=== PATIENT | female | born 1955 | race Caucasian/White ===

== ENCOUNTER 2019-08-15 08:17 | Day surgery (SDC) | payer OTHER ==
[~2019-08-15] VITALS: Ht 160 cm; Wt 62.5 kg
[~2019-08-15 08:17] MED LIST: BRINTELLIX; BUPIVACAINE-EPI 0.5%-1:200000 MPF 30 ML VIAL. INJ ONE; DEXL60CA2 PO; IV RINGERS,LACTATED 1000ML 1,000 ML IV SCH; ONDANSETRON PF 4 MG/2 ML VIAL. IV PRN; PROCHLORPERAZINE 10 MG/2 ML VIAL. IV PRN; fentaNYL PF VIAL 100 MCG/2 ML VIAL IV PRN
[2019-08-15] MEDS ORDERED: B CO1TAB10 PO (08:53)
[2019-08-15] MEDS ORDERED: LANS30CA PO (08:54)
[2019-08-15] MEDS ORDERED: BUPR100T8 PO (08:54)
[2019-08-15] MEDS ORDERED: ceFAZolin 2GM PREMIX 2 GM/50 ML BAG IV ONE (10:00)
[2019-08-15] MEDS ORDERED: ONDANSETRON PF 4 MG/2 ML VIAL. ONE (10:11)
[2019-08-15] MEDS ORDERED: PROPOFOL 20 ML IV ONE (10:11)
[2019-08-15] MEDS ORDERED: fentaNYL PF VIAL 100 MCG/2 ML VIAL ONE (10:11)
[2019-08-15] MEDS ORDERED: LIDOCAINE 2% PF 5 ML VIAL. ONE (10:11)
[2019-08-15] MEDS ORDERED: DEXAMETHASONE SOD PHOS 4 MG/ML VIAL ONE (10:11)
[2019-08-15] MEDS ORDERED: SEVOFLURANE 61 TO 120 MINUTES. IH ONE (11:00)
[2019-08-15] MEDS ORDERED: HYDROcodone/APAP 5/325MG 1 TAB TABLET PO ONE ×2 (11:30)
[2019-08-15] MEDS ORDERED: PROCHLORPERAZINE 10 MG/2 ML VIAL. ONE (11:49)
--- NOTE | 2019-08-15 11:58 | PDOC4 ---
Operative Note Operative Note Operative Note: Preoperative Diagnosis: Umbilical hernia Postoperative Diagnosis: Same Procedure: Umbilical hernia repair with mesh Surgeon: Maikel Teletype Technician: Aaron Watson Anesthesia: Gen EBL: 10 ml Specimen: None Drains: None Complications: None Indication: The patient is a 64 year old female who was referred with an umbilical hernia. She was offered surgical repair. The risks of surgery were discussed which include bleeding, infection, recurrence, pain, anesthetic risk, potential need for additional surgery or procedure. She understands and would like to proceed. Description: The patient was taken to the OR and placed supine on the operating table. General anesthesia was performed. The abdomen was prepped with chloroprep and draped in a standard surgical fashion. A small infraumbilical i ncision was made in the skin with a scalpel. Dissection was carried down to the fascia. The umbilical tissue was elevated off the fascia exposing the hernia defect. A preperitoneal plane was developed with blunt dissection. A small Ventralex ST mesh was placed in the preperitoneal plane. The mesh was secured into position with 0-Prolene placed in a horizontal mattress fashion and the 12, 3, 6, and 9:00 positions. The fascia was closed over the mesh with 0-Prolene. The umbilicus was secured back to the fascia with 0-Vicryl. The subcutaneous tissue was approximated with 3-0 Vicryl. The skin was closed with 4-0 Monocryl. The incision was infiltrated with 0.5% Marcaine with epi. Steristrips and a dressing were applied. The patient tolerated the procedure well and was sent to the PACU in stable condition. JAMIA OLEA MD Aug 15, 2019 11:58
--- NOTE | 2019-08-15 11:59 | DISCH ---
DISCHARGE INSTRUCTIONS Condition on Discharge Condition on Discharge: Stable Activity After Discharge Activity Instructions for Disc: Other, see below (no lifting over 20 lbs X 4 weeks) Diet after Discharge Diet after Discharge: Regular Wound Incision Care Wound/Incision Care: Other, see below (Keep dressing clean and dry X 72 hours, may then remove and shower) Follow-Up Follow up with: Dr Olea in 2 weeks in office, call for appt [phone] JAMIA OLEA MD Aug 15, 2019 11:59
[2019-08-15] MEDS ORDERED: HYDR-3164 PO (12:02)
[2019-08-15 12:54] VITALS: BP 126/68
== END 2019-08-15 13:30 | disposition home or self-care (01) ==
LOC: SURG 08:17
PROVIDERS: ATTEND Surgery
DX: K42.9 Umbilical hernia without obstruction or gangrene (principal); F32.9 Major depressive disorder, single episode, unspecified; Z98.890 Other specified postprocedural states; Z88.5 Allergy status to narcotic agent
CPT/HCPCS: 49585; A7015; C1781; J0696; J0780; J1100; J2001; J2405; J2704; J3010; J3490